=== PATIENT | female | born 1995 | race Caucasian/White ===

== ENCOUNTER 2018-11-10 23:16 | Emergency (ER) | payer OTHER ==
[2018-11-10 23:25] VITALS: BP 114/79; PULSE 93; TEMP 97.8; BMI 24.7
--- NOTE | 2018-11-11 00:10 | PDOC ---
History of Present Illness - General Chief Complaint: Injury Stated Complaint: LACERATION TO HAND Time Seen by Provider: 11/10/18 23:22 History Source: Patient Exam Limitations: No Limitations - History of Present Illness Initial Comments: 11/11/18 00:09 Best Contact: PCP:none Pmhx:0 Pshx:0 Allergies:nkda FH:0 Social Hx: Cigarettes/ 0 Alcohol/ social Drugs/hookah LMP:10/30/2018 23-year-old female who is right hand dominant presents to the ER complaining of a laceration to the dorsal mid to distal fifth metacarpal. Patient states while cleaning a cracked a mug, it cut her hand just prior to her arrival. Bleeding controlled with direct pressure prior to her arrival. Patient denies ext numbness or tingling sensation or weakness. Last tetanus within 5 years. Patient denies any other complaints. Past History - Past Medical History Allergies/Adverse Reactions: Allergies Allergy/AdvReac Type Severity Reaction Status Date / Time No Known Allergies Allergy Verified 11/10/18 23:25 COPD: No - Suicide/Smoking/Psychosocial Hx Smoking History: Never smoked Have you smoked in the past 12 months: No Information on smoking cessation initiated: No Hx Alcohol Use: No Drug/Substance Use Hx: No Review of Systems - Review of Systems Able to Perform ROS?: Yes Comments:: 11/11/18 00:18 CONSTITUTIONAL: Absent: fever, chills, diaphoresis, generalized weakness, malaise, loss of appetite MUSCULOSKELETAL: Absent: myalgia, arthralgia, joint swelling SKIN: Absent: rash, itching, pallor right hand: 2cm "L" shape lac to mid to distal 5th dorsal mc denies numbness/tingling/weakness Is the patient limited Tristanian proficient: No *Physical Exam - Vital Signs Last Vital Signs Temp Pulse Resp BP Pulse Ox 97.8 F 93 H 16 114/79 100 11/10/18 23:23 11/10/18 23:23 11/10/18 23:23 11/10/18 23:23 11/10/18 23:23 - Physical Exam Comments: 11/11/18 00:21 GENERAL: Well developed, well nourished. Awake and alert. No acute distress. MUSCULOSKELETAL Normal range of motion at all joints. No bony deformities or tenderness. No CVA tenderness. EXTREMITIES: No cyanosis. No clubbing. No edema. No calf tenderness. SKIN: Warm and dry. Normal capillary refill. No rashes. No jaundice. right hand 2cm"L" shape lac partial thickness to mid to distal dorsal 5th mc 2 point discrimination intact tendon fully explored and visualized on full flexion and extension neg tendon lac appreciated Procedure: 2cm"L" shape lac partial thickness to mid to distal dorsal 5th mc Betadine prep/aseptic technique 1% LIDOCAINE NS irrigation (3) 5-0 prolene simple interrupted Bacitracin Bandaid Moderate Sedation - Procedure Monitoring Vital Signs: Procedure Monitoring Vital Signs Temperature 97.8 F 11/10/18 23:23 Pulse Rate 93 H 11/10/18 23:23 Respiratory Rate 16 11/10/18 23:23 Blood Pressure 114/79 11/10/18 23:23 O2 Sat by Pulse Oximetry (%) 100 11/10/18 23:23 *DC/Admit/Observation/Transfer Diagnosis at time of Disposition: Hand laceration Qualifiers: Encounter type: initial encounter Foreign body presence: without foreign body Laterality: right Qualified Code(s): S61.411A - Laceration without foreign body of right hand, initial encounter - Discharge Dispostion Disposition: HOME Condition at time of disposition: Stable Decision to Admit order: No - Referrals Referrals: Manoj Elliott MD [Primary Care Provider] - - Patient Instructions Printed Discharge Instructions: DI for Laceration Repair -- Simple Additional Instructions: Keep the incision clean and dry for 24 hours. After 24 hours, you may allow the soap and water to rinse off your incision. Avoid direct pressure of the water to the incision. Pat the incision dry with a clean clothe. Apply a small amount of bacitracin onto the incision. Cover the incision loosely with a bandaid. Take tylenol/motrin as needed for pain. Follow up with your physician or the ER in 48 hours for a wound check. Return to the ER if you notice red streaks, increase redness/swelling/severe pain to the incision. Suture removal in days. - Post Discharge Activity
== END 2018-11-11 00:44 | disposition home or self-care (01) ==
LOC: JER 23:16
PROC: 0HQFXZZ Repair Right Hand Skin, External Approach (ICD-10-PCS; principal; 2018-11-10)
DX: S61.216A Laceration without foreign body of right little finger without damage to nail, initial encounter (principal); W25.XXXA Contact with sharp glass, initial encounter; Y93.G1 Activity, food preparation and clean up; Y92.010 Kitchen of single-family (private) house as the place of occurrence of the external cause; Y99.8 Other external cause status
CPT/HCPCS: 99281-25

== ENCOUNTER 2023-11-06 12:55 | Emergency (ER) | payer OTHER ==
[2023-11-06 13:01] VITALS: BP 117/74; PULSE 89; RESP 19; TEMP 98.1; BMI 26.5
[2023-11-06] MEDS: DIPHTH,PERTUSS(ACELL),TET 0.5 ML DISP.SYRIN IM ONE (15:45)
[2023-11-06] MEDS ORDERED: DIPHTH,PERTUSS(ACELL),TET 0.5 ML DISP.SYRIN IM ONE (15:46)
== END 2023-11-06 15:50 | disposition home or self-care (01) ==
LOC: JERFT 12:55
PROC: 3E0234Z Introduction of Serum, Toxoid and Vaccine into Muscle, Percutaneous Approach (ICD-10-PCS; principal; 2023-11-06)
DX: S61.210A Laceration without foreign body of right index finger without damage to nail, initial encounter (principal); S61.212A Laceration without foreign body of right middle finger without damage to nail, initial encounter; W23.0XXA Caught, crushed, jammed, or pinched between moving objects, initial encounter
CPT/HCPCS: 73130-TC-RT-FY; 90471; 90715; 99283-25